=== PATIENT | female | born 1955 ===

== ENCOUNTER 2017-12-21 11:05 | Inpatient (IN) | payer OTHER ==
[~2017-12-21] VITALS: Ht 152.4 cm; Wt 90.7 kg
[2017-12-21] VITALS (13 sets, daily range): BP systolic 55–106; BP diastolic 25–64
[~2017-12-21 11:05] MED LIST: ATORVASTATIN CA40 MG ORAL; BACLOFEN10 MG ORAL; DICLOFENAC SODI75 MG ORAL; GABAPENTIN300 MG ORAL; LOSARTAN POTASS50 MG ORAL; NORCO1 E1 ORAL; PAROXETINE HCL20 MG PO; ceFAZolin 1gm in D5W 55ml IVP ONE; celeBREX 200mg Cap **SURGERY PATIENTS ONLY ORAL ONE; oxyCONTIN 20mg tab ORAL ONE
[2017-12-21] MEDS ORDERED: EPINEPHrine 1mg/1ml Amp ONE (14:17)
[2017-12-21] MEDS ORDERED: NeoSporin Gu Irrig 1ml Amp IRRIG ONE (14:18)
[2017-12-21] MEDS ORDERED: Bupivacaine 0.25% Inj 30ml INJ ONE (14:18)
[2017-12-21] MEDS ORDERED: Bacitracin 50000 Units Vial ONE (14:18)
[2017-12-21] MEDS ORDERED: oxyCONTIN 20mg tab ORAL ONE (16:05)
[2017-12-21] MEDS ORDERED: celeBREX 200mg Cap **SURGERY PATIENTS ONLY ORAL ONE (16:05)
[2017-12-21] MEDS ORDERED: LR 1000ml 1,000 ML IVLG SCH (16:38)
--- NOTE | 2017-12-21 16:38 | Anethesia Preoperative Eval ---
Anesthesia Pre-op PMH/ROS General Date of Evaluation: Dec 21, 2017 Time of Evaluation: 17:54 Anesthesiologist: Fawad ASA Score: ASA 3 Mallampati Score Class I : Soft palate, uvula, fauces, pillars visible Class II: Soft palate, uvula, fauces visible Class III: Soft palate, base of uvula visible Class IV: Only hard plate visible Mallampati Classification: Class II Surgeon: Gregory Diagnosis: L Shoulder Pain Surgical Procedure: L Shoulder Reverse Total Arthroplasty Anesthesia History: none Family History: no anesthesia problems Allergies: Coded Allergies: METHOCARBAMOL (Verified Allergy, Intermediate, hives, 12/20/17) Medications: see eMAR Past Medical History Cardiovascular: Reports: HTN, other - HL Other: obesity - BMI 44 PSxH Narrative: L Shoulder Total Arthroplasty Anesthesia Pre-op Phys. Exam Physician Exam Last Vital Signs Date Time Temp Pulse Resp B/P (MAP) Pulse Ox O2 Delivery O2 Flow Rate FiO2 12/21/17 12:18 Room Air 12/21/17 11:56 98.0 64 18 106/64 (78) 97 98.0 Constitutional: NAD Neurologic: CN 2-12 intact Cardiovascular: RRR Respiratory: CTA Gastrointestinal: S/NT/ND Airway Exam Mallampati Score: Class II MO: full ROM: limited Teeth: missing Dentures: upper Anesthesia Pre-op A/P Risk Assessment & Plan Assessment: ASA 3 Plan: GA, BIS, L Supraclavicular Block Status Change Before Surgery: No Pre-Antibiotics Dru Grams Ancef IV Given Within 1 Hr of Incision: Yes Time Given: 18:04 Rayshawn Celestin MD Dec 21, 2017 16:38
[2017-12-21] MEDS ORDERED: HYDROcodone/Acetamin 7.5/325 tab ORAL PRN (16:45)
[2017-12-21] MEDS ORDERED: DiphenhydrAMINE 50mg/ml Inj IVP PRN (16:45)
[2017-12-21] MEDS ORDERED: Atropine Inj 1mg/10ml Syr IV PRN (16:45)
[2017-12-21] MEDS ORDERED: LORazepam Inj 2mg/ml 1ml IV PRN (16:45)
[2017-12-21] MEDS ORDERED: Midazolam 2mg/2ml Inj IVP PRN (16:45)
[2017-12-21] MEDS ORDERED: Hydromorphone 0.5mg/0.5ml inj IVP PRN (16:45)
[2017-12-21] MEDS ORDERED: fentaNYL 100 mcg/2 mL IV PRN (16:45)
[2017-12-21] MEDS ORDERED: Metoclopramide 10mg/2ml Inj IVP PRN (16:45)
[2017-12-21] MEDS ORDERED: Norco 5mg/325mg tab ORAL PRN (16:45)
[2017-12-21] MEDS ORDERED: oxyCODONE HCL/Acetaminophen 5/325mg ORAL PRN (16:45)
[2017-12-21] MEDS ORDERED: Labetalol 5mg/ml 20ml vial IV PRN (16:45)
[2017-12-21] MEDS ORDERED: Ketorolac 30mg Inj IV PRN ×2 (16:45)
--- NOTE | 2017-12-21 17:11 | Immediate Post-Op Evaluation ---
Immediate Post-Op Evalulation Immediate Post-Op Evalulation Procedure: L Shoulder Reverse Revision Total Arthroplasty Date of Evaluation: Dec 21, 2017 Time of Evaluation: 20:40 IV Fluids: 1000 LR Blood Products: 0 Estimated Blood Loss: 100 Urinary Output: 0 Blood Pressure Systolic: 98 Blood Pressure Diastolic: 63 Pulse Rate: 89 Respiratory Rate: 16 O2 Sat by Pulse Oximetry: 96 Temperature (Fahrenheit): 99.1 Pain Score (1-10): 2 Nausea: No Vomiting: No Complications 0 Patient Status: awake, reacts, patent, extubated, none Hydration Status: adequate Dru grams Ancef IV Given Within 1 Hr of Incision: Yes Time Given: 18:04 Rayshawn Celestin MD Dec 21, 2017 17:11
--- NOTE | 2017-12-21 17:11 | 48 Hour Post Anesthesia Eval ---
Post Anesthesia Evaluation Procedure: L Shoulder Reverse Revision Total Arthroplasty Date of Evaluation: Dec 21, 2017 Time of Evaluation: 22:47 Blood Pressure Systolic: 98 0: 65 Pulse Rate: 78 Respiratory Rate: 18 Temperature (Fahrenheit): 98.4 O2 Sat by Pulse Oximetry: 99 Airway: patent Nausea: No Vomiting: No Pain Intensity: 2 Hydration Status: adequate Cardiopulmonary Status: Stable Mental Status/LOC: patient returned to baseline Follow-up Care/Observations: 0 Post-Anesthesia Complications: 0 Follow-up care needed: N/A Rayshawn Celestin MD Dec 21, 2017 17:11
[2017-12-21] MEDS ORDERED: Propofol 200mg/20ml IV ONE (17:17)
[2017-12-21] MEDS ORDERED: Sodium Chloride 10ml vial INJ ONE (17:17)
[2017-12-21] MEDS ORDERED: Lidocaine 1% MPF 10mg/ml 5ml ONE (17:17)
[2017-12-21] MEDS ORDERED: Dexamethasone 4mg/ml vial ONE (17:17)
[2017-12-21] MEDS ORDERED: Ropivacaine 5mg/ml Vial 30ml INJ ONE (17:19)
[2017-12-21] MEDS ORDERED: Alfentanil 2ml Inj ONE (17:22)
--- NOTE | 2017-12-21 17:32 | Pre-Procedure Note/Attestation ---
Pre-Procedure Note/Attestation Complete Prior to Procedure Planned Procedure: left Procedure Narrative: reverse shoulder replacement Indications for Procedure Pre-Operative Diagnosis: left shoulder arthritis Attestation I attest that I discussed the nature of the procedure; its benefits; risks and complications; and alternatives (and the risks and benefits of such alternatives ), prior to the procedure, with the patient (or the patient's legal aircraft sales representative). I attest that, if there was a reasonable possibility of needing a blood transfusion, the patient (or the patient's legal aircraft sales representative) was given the [facility] standardized written summary, pursuant to the Rafi Gurjit Blood Safety Act ([place] Health and Safety Code # 1645, as amended). I attest that I re-evaluated the patient just prior to the surgery and that there has been no change in the patient's H&P, except as documented below: Ezequiel Jenkins MD Dec 21, 2017 17:32
--- NOTE | 2017-12-21 17:33 | Operative Note - PDOC ---
Operative Note Operative Note Pre-op Diagnosis: left shoulder arthritis Procedure: see op report Post-op Diagnosis: same as pre-op plus Operative Findings: consistent w/pre-op dx studies Anesthesia: regional Specimen: none Complications: none Condition: stable Estimated Blood Loss: none Implant(s) used?: Yes Ezequiel Jenkins MD Dec 21, 2017 17:33
[2017-12-21] MEDS ORDERED: NS Irrig 1000ml IRRIG ONE (17:40)
[2017-12-21] MEDS ORDERED: D5 1/2NS 1,000 ML IV SCH (17:45)
[2017-12-21] MEDS ORDERED: LR 1000ml ONE (18:00)
[2017-12-21] MEDS ORDERED: NS Irrig 1000ml ONE (18:00)
[2017-12-21] MEDS ORDERED: Sterile Water Irrig 1000ml IRRIG ONE (18:00)
[2017-12-21] MEDS ORDERED: ePHEDrine 50mg/ml Inj ONE (18:41)
[2017-12-21] MEDS ORDERED: Phenylephrine 10mg/ml Vial ONE (18:41)
[2017-12-21] MEDS ORDERED: Glycopyrrolate 0.2mg/ml 1ml Vial ONE (18:42)
[2017-12-21] MEDS ORDERED: oxyCONTIN 20mg tab ORAL SCH (21:00)
--- NOTE | 2017-12-21 23:22 | General Progress Note ---
Assessment/Plan Status Narrative 62 year old female with history fof hypertenison pablook her bp meds last night and re took them this am her bp post op has remained low while she is alert , oriented adn talisha she was transfered to ICU for further care. Assessment/Plan plan start giving her bolus ivf and her blood pressure is getting better EKG is normal sins thyrhm no acute st t changed plan IVF bolus to be given .troponin q8 hrs times 3 a admit to icu uivf 150 cc for 8 hours and monitor blood pressure follow her in monitor bed sheis not tachycardic doub t post op VTE check cbc cmp troponin get ekg in am lowry to gravity adn get u a and urine culture icu monitoring discussed wtihnursing staff. Subjective Date patient seen: Dec 21, 2017 Time patient seen: 23:11 Constitutional: Reports: no symptoms HEENT: Reports: no symptoms Respiratory: Reports: no symptoms Gastrointestinal/Abdominal: Reports: no symptoms Allergies: Coded Allergies: METHOCARBAMOL (Verified Allergy, Intermediate, hives, 12/20/17) Subjective s/p left shoulder arthroplasty no chest pain no sob has low bp has history of hypertenion took her blood presure medicaiton losartan 100 mg last night and took another 100 mg this am she has been npo since last night adn has had only 100 cc intraoperative blood loss she is alert responsive on josh bed almeida and has no lowry placed ther isno post op lab drawn i was paged and got to hospital within 15 minutes her bp was low and send from pacu to ICU. Objective Last 24 Hour Vital Signs Date Time Temp Pulse Resp B/P (MAP) Pulse Ox O2 Delivery O2 Flow Rate FiO2 12/21/17 21:55 84 16 77/55 95 Nasal Cannula 3 12/21/17 21:40 83 19 85/51 95 Nasal Cannula 3 12/21/17 21:25 78 14 78/58 95 Nasal Cannula 3 12/21/17 21:10 81 16 86/57 95 Nasal Cannula 3 12/21/17 20:50 79 16 89/48 95 Nasal Cannula 3 12/21/17 20:39 84 16 84/51 95 Nasal Cannula 3 12/21/17 20:34 91 16 88/50 98 Nasal Cannula 3 12/21/17 20:34 209.1 78 18 99 12/21/17 20:33 210.4 89 16 96 12/21/17 20:29 99.1 91 16 98/63 99 Simple Mask 8 99.1 12/21/17 12:18 Room Air 12/21/17 11:56 98.0 64 18 106/64 (78) 97 98.0 Height (Feet): 5 Height (Inches): 0.00 Weight (Pounds): 200 General Appearance: WD/WN, other - alert aware oriented Neck: other - no j vd Cardiovascular: normal rate, regular rhythm, no JVD Respiratory/Chest: lungs clear Abdomen: soft Extremities: no calf tenderness - has ahd a block., other - left shoulder on shoulder brace adn unable to move Magnus Francisco MD Dec 21, 2017 23:22
[2017-12-21] MEDS: ceFAZolin sod 1 GM in D5W 55 ML IV SCH (23:30)
[2017-12-21 23:35] LABS: HEMATOCRIT 31.5 % (37.0-47.0); MEAN CORPUSCULAR VOLUME 96 FL (80-99); PLATELET COUNT 249 K/UL (150-450); RED BLOOD COUNT 3.28 M/UL (4.20-5.40); RED CELL DISTRIBUTION WIDTH 11.9 % (11.6-14.8); WHITE BLOOD COUNT 12.7 K/UL (4.8-10.8)
[2017-12-21 23:42] LABS: APPEARANCE,URINE CLEAR; BILIRUBIN, URINE NEGATIVE (NEGATIVE); COLOR,URINE PALE YELLOW; GLUCOSE, URINE (UA) NEGATIVE (NEGATIVE); KETONES,URINE NEGATIVE (NEGATIVE); LEUKOCYTE ESTERASE ,URINE NEGATIVE (NEGATIVE); NITRITE,URINE NEGATIVE (NEGATIVE); PH,URINE 6 (4.5-8.0); PROTEIN,URINE NEGATIVE (NEGATIVE); UROBILINOGEN,URINE NORMAL MG/DL (0.0-1.0)
[2017-12-21 23:46] LABS: ANION GAP 9 mmol/L (5-15); BLOOD UREA NITROGEN 17 mg/dL (7-18); CALCIUM 7.7 MG/DL (8.5-10.1); CARBON DIOXIDE 23 MMOL/L (21-32); CHLORIDE 111 MMOL/L (98-107); CREATININE 0.7 MG/DL (0.55-1.30); POTASSIUM 3.7 MMOL/L (3.5-5.1); SODIUM 143 MMOL/L (136-145)
[2017-12-21 23:50] LABS: ALANINE AMINOTRANSFERASE 34 U/L (12-78); ALBUMIN 2.9 G/DL (3.4-5.0); ALBUMIN/GLOBULIN RATIO 1.1 (1.0-2.7); ALKALINE PHOSPHATASE 50 U/L (46-116); ASPARTATE AMINO TRANSFERASE 18 U/L (15-37); BILIRUBIN,TOTAL 0.2 MG/DL (0.2-1.0)
--- NOTE | 2017-12-21 23:50 | Diagnostic Imaging Report ---
EXAM: XR Left Shoulder Complete, 2 or More Views CLINICAL HISTORY: POST-OP TECHNIQUE: Two or more views of the left shoulder. COMPARISON: No relevant prior studies available. FINDINGS: Left shoulder prosthesis appears well seated. No radiographic evidence of acute fracture or dislocation. The acromioclavicular joint is normal caliber. There is soft tissue prominence. IMPRESSION: No prior studies available for direct comparison. Well seated left shoulder prosthesis. No radiographic evidence of acute fracture or dislocation. Soft tissue prominence.
[2017-12-22] VITALS (45 sets, daily range): BP systolic 64–128; BP diastolic 32–76
[2017-12-22] MEDS ORDERED: Sodium Chloride 500ML 500 ML IV ONE
[2017-12-22] MEDS ORDERED: Midodrine 10mg tab ORAL SCH
--- NOTE | 2017-12-22 00:14 | General Progress Note ---
Assessment/Plan Assessment/Plan this is an unfortuante female who has basically doubled up her bp meds and went to surgery her bp was low to begin with preop and then has ahd surgery hjer bp is low depite it being low she is nto altered cbc reviewed, specific gravity of urine reviwed trioponin is negative nad her EKG is NSR monitor closely and will follow ivf bolus given will give 150 cc pwer hour. Subjective Date patient seen: Dec 22, 2017 Time patient seen: 00:10 Constitutional: Reports: no symptoms HEENT: Reports: no symptoms Cardiovascular: Reports: no symptoms Allergies: Coded Allergies: METHOCARBAMOL (Verified Allergy, Intermediate, hives, 12/20/17) Subjective has been given over 3 liters of iv fluid her urine out pur is good her bp is liow 80 with 55 diastolic making urine nad not altered adn converses Objective Last 24 Hour Vital Signs Date Time Temp Pulse Resp B/P (MAP) Pulse Ox O2 Delivery O2 Flow Rate FiO2 12/21/17 21:55 84 16 77/55 95 Nasal Cannula 3 12/21/17 21:40 83 19 85/51 95 Nasal Cannula 3 12/21/17 21:25 78 14 78/58 95 Nasal Cannula 3 12/21/17 21:10 81 16 86/57 95 Nasal Cannula 3 12/21/17 20:50 79 16 89/48 95 Nasal Cannula 3 12/21/17 20:39 84 16 84/51 95 Nasal Cannula 3 12/21/17 20:34 91 16 88/50 98 Nasal Cannula 3 12/21/17 20:34 209.1 78 18 99 12/21/17 20:33 210.4 89 16 96 12/21/17 20:29 99.1 91 16 98/63 99 Simple Mask 8 99.1 12/21/17 12:18 Room Air 12/21/17 11:56 98.0 64 18 106/64 (78) 97 98.0 Intake and Output 12/21/17 12/22/17 19:00 07:00 Intake Total 3000 ml Output Total 100 ml Balance 2900 ml Intake IV Total 3000 ml Output Estimated Blood Loss 100 ml # Voids 1 Laboratory Tests 12/21/17 23:15: Urine Color Pale yellow, Urine Appearance Clear, Urine pH 6, Urine Specific [place] 1.015, Urine Protein Negative, Urine Glucose (UA) Negative, Urine Ketones Negative, Urine Occult Blood Negative, Urine Nitrite Negative, Urine Bilirubin Negative, Urine Urobilinogen Normal, Urine Leukocyte Esterase Negative , Urine RBC 0-2, Urine WBC 0-2, Urine Squamous Epithelial Cells Few, Urine Bacteria Occasional 12/21/17 23:25: White Blood Count 12.7H, Red Blood Count 3.28L, Hemoglobin 11.0L, Hematocrit 31.5L, Mean Corpuscular Volume 96, Mean Corpuscular Hemoglobin 33.5H, Mean Corpuscular Hemoglobin Concent 35.0, Red Cell Distribution Width 11.9, Platelet Count 249, Mean Platelet Volume 6.5, Neutrophils (%) (Auto) , Lymphocytes (%) ( Auto) , Monocytes (%) (Auto) , Eosinophils (%) (Auto) , Basophils (%) (Auto) , Differential Total Cells Counted 100, Neutrophils % (Manual) 93H, Lymphocytes % (Manual) 6L, Monocytes % (Manual) 1, Eosinophils % (Manual) 0, Basophils % ( Manual) 0, Band Neutrophils 0, Platelet Estimate Adequate, Platelet Morphology Normal, Hypochromasia 1+, Anisocytosis 1+, Sodium Level 143, Potassium Level 3.7 , Chloride Level 111H, Carbon Dioxide Level 23, Anion Gap 9, Blood Urea Nitrogen 17, Creatinine 0.7, Estimat Glomerular Filtration Rate > 60, Glucose Level 133H, Calcium Level 7.7L, Total Bilirubin 0.2, Aspartate Amino Transf (AST /SGOT) 18, Alanine Aminotransferase (ALT/SGPT) 34, Alkaline Phosphatase 50, Troponin I 0.017, Total Protein 5.5L, Albumin 2.9L, Globulin 2.6, Albumin/ Globulin Ratio 1.1 Height (Feet): 5 Height (Inches): 0.00 Weight (Pounds): 200 Cardiovascular: normal rate, regular rhythm, no JVD Respiratory/Chest: lungs clear Magnus Francisco MD Dec 22, 2017 00:14
[2017-12-22] MEDS ORDERED: DOPamine 400mg/250ml 250 ML IV SCH ×2 (01:00→13:00)
--- NOTE | 2017-12-22 01:48 | Diagnostic Imaging Report ---
EXAM: XR Chest, 1 View CLINICAL HISTORY: SOB TECHNIQUE: Frontal view of the chest. COMPARISON: No relevant prior studies available. FINDINGS: Cardiac silhouette is within normal limits. Central vascular congestion. Low lung volumes. Left lung base infiltrate and small left effusion. Left shoulder prosthesis. IMPRESSION: Central vascular congestion. Left lung base infiltrate and small left effusion.
[2017-12-22] MEDS: Norco 5mg/325mg tab ORAL PRN ×3 (02:34→21:27)
--- NOTE | 2017-12-22 04:45 | Operative Note - Dictated ---
DATE OF OPERATION: 12/21/2017 PREOPERATIVE DIAGNOSIS: Left shoulder rotator cuff arthropathy secondary to fall. POSTOPERATIVE DIAGNOSIS: Left shoulder rotator cuff arthropathy secondary to fall. PROCEDURE: Left total reverse shoulder replacement, open biceps tenodesis. SURGEON: Ezequiel Jenkins M.D. ANESTHESIA: Interscalene with general. INDICATION FOR PROCEDURE: The patient is a pleasant female who was noted to have a significant fall. She subsequently had a rotator cuff tear. She had significant progression of rotator cuff arthropathy as a result of the fall and subsequent tear. She had significant neck pain, difficulty with activities of daily living, elected to undergo reverse shoulder replacement. Risks, limitations, expectations, and complications of procedure were discussed in detail. All questions addressed. DESCRIPTION OF PROCEDURE: After informed consent was obtained, the patient was brought to the operating room. The patient was placed under interscalene with general anesthesia. The patient was carefully positioned in beach chair position with care to pad all the extremities. Left shoulder was prepped and draped in a sterile manner. Time-out was performed. Standard deltopectoral incision to the shoulder was performed. The biceps tendon was identified. Open tenotomy subpectoral was performed using #2 FiberWire. There was complete deficiency of the supraspinatus. The subscapularis slightly was peeled to better gain access to the shoulder. Once that was done, anterior and posterior Bankart retractors were placed and capsulectomy was performed. Care was taken to protect the axillary nerve. A centering guide was then placed and a cannulated screw was placed. Sequential reaming over the guidewire was performed and a small base plate was selected with 4 cortical screws. Small glenosphere was then impacted into place. At this point, attention was turned towards the humeral preparation. Sequential broaching up to a size 9 was performed. A humeral adapter tray with +0 humeral liner was selected and placed. Shoulder was somewhat difficult to reduce, this was the smallest implant available. Once we were able to reduce this, it seemed like she had pretty good tension of the deltoid. No impingement with forward elevation to 160, abduction and external rotation. At this point, the trial components were removed and final implants were impacted into place. The wound was copiously irrigated. The deltoid fascia was approximated with 1 Vicryl suture. Skin was closed using 3-0 Monocryl sutures. Steri-Strips and a sterile dressing were applied. The patient was awoken and taken to recovery room with stable vital signs. ESTIMATED BLOOD LOSS: 100 mL. COMPLICATIONS: None. SPECIMENS: None. Gross specimens include bone fragments. IMPLANT: Include size 9 humeral head with +0 humeral adapter tray, 38+ humeral liner, a small 38 mm glenosphere. Ezequiel Jenkins M.D. DR: SAMIR JOB#: [id number] CC:
[2017-12-22] MEDS: Hydromorphone 0.5mg/0.5ml inj SUBQ PRN ×3 (05:33→19:50)
[2017-12-22 05:40] LABS: HEMATOCRIT 35.5 % (37.0-47.0); HEMOGLOBIN 12.2 G/DL (12.0-16.0); MEAN CORPUSCULAR VOLUME 93 FL (80-99); PLATELET COUNT 282 K/UL (150-450); RED CELL DISTRIBUTION WIDTH 11.7 % (11.6-14.8); WHITE BLOOD COUNT 11.3 K/UL (4.8-10.8)
[2017-12-22] MEDS: ceFAZolin sod 1 GM in D5W 55 ML IV SCH ×2 (06:01→16:27)
[2017-12-22 06:58] LABS: ANION GAP 13 mmol/L (5-15); BLOOD UREA NITROGEN 15 mg/dL (7-18); CALCIUM 8.3 MG/DL (8.5-10.1); CARBON DIOXIDE 21 MMOL/L (21-32); CHLORIDE 109 MMOL/L (98-107); CREATININE 0.6 MG/DL (0.55-1.30); POTASSIUM 3.7 MMOL/L (3.5-5.1); SODIUM 143 MMOL/L (136-145)
[2017-12-22] MEDS ORDERED: celeBREX 200mg Cap **SURGERY PATIENTS ONLY ORAL SCH (09:00)
--- NOTE | 2017-12-22 11:33 | General Progress Note ---
Assessment/Plan Assessment/Plan this is an unfortuante female who has basically doubled up her bp meds and went to surgery her bp was low to begin with preop and then has had surgery her bp is low despite it being low she is has not been altered she is making good amount of urine out put cbc reviewed, specific gravity of urine reviwed trioponin is negative nad her EKG is NSR monitor closely and will follow ivf bolus given will give 150 cc pwer hour. troponin x2 negative chest xray has a basalr infitrate adn her sat has dropped slightly will monitor will follow flo follow troponin get a v q scan to make sure no acute pe venous douplex no DVT will do 2 blood culture on her will start her on levofloxin 500 mg iv daily will place her on probiotics. Subjective Date patient seen: Dec 22, 2017 Time patient seen: 11:24 Constitutional: Reports: no symptoms HEENT: Reports: no symptoms Cardiovascular: Reports: no symptoms Respiratory: Reports: shortness of breath Gastrointestinal/Abdominal: Reports: other Genitourinary: Reports: other Endocrine: Reports: other Allergies: Coded Allergies: METHOCARBAMOL (Verified Allergy, Intermediate, hives, 12/20/17) Subjective has had iv fluid was placed on dopamine and got her bp better given ivf and was placed on low dose dopamine and bp was around i100 and dced no [place] t xray basalar infiltrat Objective Last 24 Hour Vital Signs Date Time Temp Pulse Resp B/P (MAP) Pulse Ox O2 Delivery O2 Flow Rate FiO2 12/22/17 09:00 93 13 105/76 (86) 94 12/22/17 08:00 93 24 105/76 (86) 94 12/22/17 08:00 Nasal Cannula 4.0 12/22/17 08:00 74 12/22/17 07:00 73 13 116/56 (76) 94 12/22/17 06:15 77 13 104/52 (69) 90 12/22/17 06:00 79 12 111/50 (70) 91 12/22/17 05:45 80 12 106/53 (70) 91 12/22/17 05:30 87 19 98/46 (63) 91 12/22/17 05:15 90 19 118/54 (75) 92 12/22/17 05:00 84 15 118/56 (76) 92 12/22/17 04:45 86 15 119/50 (73) 92 12/22/17 04:30 86 16 109/50 (69) 92 12/22/17 04:15 86 15 112/49 (70) 92 12/22/17 04:00 86 12/22/17 04:00 97.9 87 14 114/57 (76) 90 97.9 12/22/17 04:00 Nasal Cannula 4.0 12/22/17 03:45 85 14 106/57 (73) 90 12/22/17 03:30 82 13 106/57 (73) 91 12/22/17 03:15 83 13 111/53 (72) 90 12/22/17 03:00 83 13 108/48 (68) 92 12/22/17 02:45 83 13 101/50 (67) 92 12/22/17 02:30 82 13 109/40 (63) 91 12/22/17 02:15 84 13 107/52 (70) 92 12/22/17 02:00 109/40 12/22/17 02:00 83 13 103/52 (69) 93 12/22/17 01:45 85 13 98/47 (64) 91 12/22/17 01:30 90 13 106/46 (66) 92 12/22/17 01:25 Nasal Cannula 2.0 12/22/17 01:15 91 16 104/53 (70) 90 12/22/17 01:00 86 19 108/53 (71) 93 12/22/17 00:56 84/50 12/22/17 00:45 83 16 81/54 (63) 94 12/22/17 00:30 79 16 84/50 (61) 93 12/22/17 00:15 86 17 77/52 (60) 94 12/22/17 00:00 84 17 64/41 (49) 95 12/22/17 00:00 Nasal Cannula 4.0 12/22/17 00:00 84 12/21/17 23:45 83 17 55/25 (35) 95 12/21/17 23:30 79 17 77/56 (63) 94 12/21/17 23:15 80 18 78/49 (59) 94 12/21/17 23:00 98.1 81 19 80/55 (63) 94 98.1 12/21/17 21:55 84 16 77/55 95 Nasal Cannula 3 12/21/17 21:40 83 19 85/51 95 Nasal Cannula 3 12/21/17 21:25 78 14 78/58 95 Nasal Cannula 3 12/21/17 21:10 81 16 86/57 95 Nasal Cannula 3 12/21/17 20:50 79 16 89/48 95 Nasal Cannula 3 12/21/17 20:39 84 16 84/51 95 Nasal Cannula 3 12/21/17 20:34 91 16 88/50 98 Nasal Cannula 3 12/21/17 20:34 209.1 78 18 99 12/21/17 20:33 210.4 89 16 96 12/21/17 20:29 99.1 91 16 98/63 99 Simple Mask 8 99.1 12/21/17 12:18 Room Air 12/21/17 11:56 98.0 64 18 106/64 (78) 97 98.0 Intake and Output 12/21/17 12/22/17 19:00 07:00 Intake Total 4691.437 ml Output Total 1475 ml Balance 3216.437 ml Intake Oral 720 ml IV Total 3971.437 ml Output Urine Total 1375 ml Estimated Blood Loss 100 ml # Voids 1 Laboratory Tests 12/21/17 23:15: Urine Color Pale yellow, Urine Appearance Clear, Urine pH 6, Urine Specific [place] 1.015, Urine Protein Negative, Urine Glucose (UA) Negative, Urine Ketones Negative, Urine Occult Blood Negative, Urine Nitrite Negative, Urine Bilirubin Negative, Urine Urobilinogen Normal, Urine Leukocyte Esterase Negative , Urine RBC 0-2, Urine WBC 0-2, Urine Squamous Epithelial Cells Few, Urine Bacteria Occasional 12/21/17 23:25: White Blood Count 12.7H, Red Blood Count 3.28L, Hemoglobin 11.0L, Hematocrit 31.5L, Mean Corpuscular Volume 96, Mean Corpuscular Hemoglobin 33.5H, Mean Corpuscular Hemoglobin Concent 35.0, Red Cell Distribution Width 11.9, Platelet Count 249, Mean Platelet Volume 6.5, Neutrophils (%) (Auto) , Lymphocytes (%) ( Auto) , Monocytes (%) (Auto) , Eosinophils (%) (Auto) , Basophils (%) (Auto) , Differential Total Cells Counted 100, Neutrophils % (Manual) 93H, Lymphocytes % (Manual) 6L, Monocytes % (Manual) 1, Eosinophils % (Manual) 0, Basophils % ( Manual) 0, Band Neutrophils 0, Platelet Estimate Adequate, Platelet Morphology Normal, Hypochromasia 1+, Anisocytosis 1+, Sodium Level 143, Potassium Level 3.7 , Chloride Level 111H, Carbon Dioxide Level 23, Anion Gap 9, Blood Urea Nitrogen 17, Creatinine 0.7, Estimat Glomerular Filtration Rate > 60, Glucose Level 133H, Calcium Level 7.7L, Total Bilirubin 0.2, Aspartate Amino Transf (AST /SGOT) 18, Alanine Aminotransferase (ALT/SGPT) 34, Alkaline Phosphatase 50, Troponin I 0.017, Total Protein 5.5L, Albumin 2.9L, Globulin 2.6, Albumin/ Globulin Ratio 1.1 12/22/17 05:25: White Blood Count 11.3H, Red Blood Count 3.80L, Hemoglobin 12.2, Hematocrit 35.5L, Mean Corpuscular Volume 93, Mean Corpuscular Hemoglobin 32.0H, Mean Corpuscular Hemoglobin Concent 34.3, Red Cell Distribution Width 11.7, Platelet Count 282, Mean Platelet Volume 6.4L, Neutrophils (%) (Auto) , Lymphocytes (%) ( Auto) , Monocytes (%) (Auto) , Eosinophils (%) (Auto) , Basophils (%) (Auto) , Differential Total Cells Counted 100, Neutrophils % (Manual) 91H, Lymphocytes % (Manual) 8L, Monocytes % (Manual) 1, Eosinophils % (Manual) 0, Basophils % ( Manual) 0, Band Neutrophils 0, Platelet Estimate Adequate, Platelet Morphology Normal, Sodium Level 143, Potassium Level 3.7, Chloride Level 109H, Carbon Dioxide Level 21, Anion Gap 13, Blood Urea Nitrogen 15, Creatinine 0.6, Estimat Glomerular Filtration Rate > 60, Glucose Level 183H, Calcium Level 8.3L, Troponin I 0.000 Height (Feet): 5 Height (Inches): 0.00 Weight (Pounds): 200 General Appearance: WD/WN Cardiovascular: no JVD Respiratory/Chest: other - prolonged exp phase end exp wheezing left base decrease baasalr brath sound Abdomen: non tender, soft Extremities: other - no edema Magnus Francisco MD Dec 22, 2017 11:32
[2017-12-22] MEDS: Albuterol ud Inhalation HHN SCH ×2 (13:00→19:07)
[2017-12-22] MEDS: Ipratropium 0.02% Inh Soln 2.5ml UD HHN SCH ×2 (13:00→19:07)
[2017-12-22 13:54] LABS: APPEARANCE,URINE CLEAR; BILIRUBIN, URINE NEGATIVE (NEGATIVE); COLOR,URINE PALE YELLOW; GLUCOSE, URINE (UA) NEGATIVE (NEGATIVE); KETONES,URINE NEGATIVE (NEGATIVE); LEUKOCYTE ESTERASE ,URINE NEGATIVE (NEGATIVE); NITRITE,URINE NEGATIVE (NEGATIVE); PH,URINE 6 (4.5-8.0); PROTEIN,URINE NEGATIVE (NEGATIVE); UROBILINOGEN,URINE NORMAL MG/DL (0.0-1.0)
[2017-12-22] MEDS ORDERED: NS 500ML ONE (15:45)
[2017-12-22] MEDS ORDERED: Tubing IV Secondary IV ONE (15:54)
[2017-12-22] MEDS: ALPRAZolam 0.25mg tab ORAL PRN (18:50)
[2017-12-23] VITALS (20 sets, daily range): BP systolic 90–157; BP diastolic 52–93
[2017-12-23] MEDS: Ipratropium 0.02% Inh Soln 2.5ml UD HHN SCH ×4 (01:00→20:14)
[2017-12-23] MEDS: Norco 5mg/325mg tab ORAL PRN (02:10)
[2017-12-23] MEDS: Hydromorphone 0.5mg/0.5ml inj SUBQ PRN ×4 (02:18→20:46)
[2017-12-23 05:54] LABS: ANION GAP 4 mmol/L (5-15); BLOOD UREA NITROGEN 10 mg/dL (7-18); CALCIUM 8.6 MG/DL (8.5-10.1); CARBON DIOXIDE 28 MMOL/L (21-32); CHLORIDE 111 MMOL/L (98-107); CREATININE 0.6 MG/DL (0.55-1.30); POTASSIUM 3.7 MMOL/L (3.5-5.1); SODIUM 143 MMOL/L (136-145)
[2017-12-23 05:59] LABS: BASOPHILS % (AUTO) 0.3 % (0.0-2.0); HEMATOCRIT 31.2 % (37.0-47.0); HEMOGLOBIN 10.9 G/DL (12.0-16.0); LYMPHOCYTES % (AUTO) 27.1 % (20.0-45.0); MEAN CORPUSCULAR VOLUME 94 FL (80-99); MONOCYTES % (AUTO) 5.6 % (1.0-10.0); PLATELET COUNT 244 K/UL (150-450); RED BLOOD COUNT 3.32 M/UL (4.20-5.40); RED CELL DISTRIBUTION WIDTH 11.3 % (11.6-14.8); WHITE BLOOD COUNT 9.4 K/UL (4.8-10.8)
[2017-12-23] MEDS: Albuterol ud Inhalation HHN SCH ×3 (07:00→20:14)
[2017-12-23] MEDS: ALPRAZolam 0.25mg tab ORAL PRN (13:22)
--- NOTE | 2017-12-23 13:30 | Cardiology Report ---
APPROVED REPORT EKG Measurement Heart [id number] Normal sinus rhythm Normal ECG
--- NOTE | 2017-12-23 15:43 | General Progress Note ---
Assessment/Plan Assessment/Plan this is an unfortuante female who has basically doubled up her bp meds and went to surgery her bp was low to begin with preop and then has had surgery her bp is low -despite it being low it was noted that her left arm has much higher bp than right arm she had lots of iv fluid given now better seld diuresing trioponin is negative nad her EKG is NSR monitor closely and will follow Chest xray has a basalar infitrate and slihgt effusion on iv antibiotic venous douplex no DVT has had 2 blood culture on her was started on levofloxin 500 mg iv daily will place her on probiotics. nebulizer tratement and follow doing better was send to monitor bed and now can go to floor. Subjective Date patient seen: Dec 23, 2017 Time patient seen: 15:38 Allergies: Coded Allergies: METHOCARBAMOL (Verified Allergy, Intermediate, hives, 12/20/17) Subjective she has made a lort of urine doing well still has a cough was started on antibiotic no chest pain no sob wound dressing is dry Objective Last 24 Hour Vital Signs Date Time Temp Pulse Resp B/P (MAP) Pulse Ox O2 Delivery O2 Flow Rate FiO2 12/23/17 13:40 69 20 99 Nasal Cannula 3.0 32 12/23/17 13:30 70 18 99 Nasal Cannula 3.0 32 12/23/17 13:00 69 16 126/85 (99) 94 12/23/17 12:00 75 12/23/17 12:00 Nasal Cannula 4.0 12/23/17 12:00 98.7 71 16 157/71 (99) 94 98.7 12/23/17 11:00 77 17 134/69 (90) 94 12/23/17 10:00 79 18 135/93 (107) 94 12/23/17 09:00 71 14 147/64 (91) 94 12/23/17 08:00 Nasal Cannula 4.0 12/23/17 08:00 98.6 77 16 157/71 (99) 94 98.6 12/23/17 08:00 77 12/23/17 07:50 Nasal Cannula 12/23/17 07:50 Nasal Cannula 3.0 32 12/23/17 07:50 Nasal Cannula 12/23/17 07:50 96 Nasal Cannula 3.0 32 12/23/17 07:00 72 13 150/67 (94) 97 12/23/17 06:00 71 13 145/70 (95) 97 12/23/17 05:00 77 13 139/65 (89) 96 12/23/17 04:00 74 12/23/17 04:00 Nasal Cannula 4.0 12/23/17 04:00 98.5 70 13 138/56 (83) 96 98.5 12/23/17 03:00 71 13 129/62 (84) 96 12/23/17 02:00 70 18 113/52 (72) 98 12/23/17 01:04 Nasal Cannula 3.0 32 12/23/17 01:04 Nasal Cannula 3.0 32 12/23/17 01:00 70 14 105/83 (90) 96 12/23/17 00:00 Nasal Cannula 4.0 12/23/17 00:00 98.5 70 14 120/52 (74) 96 98.5 12/22/17 23:00 70 20 119/48 (71) 98 12/22/17 22:00 71 20 124/52 (76) 97 12/22/17 21:00 71 20 120/50 (73) 97 12/22/17 20:00 85 12/22/17 20:00 Nasal Cannula 4.0 12/22/17 20:00 98.3 71 20 112/49 (70) 95 98.3 12/22/17 19:17 73 15 99 Nasal Cannula 3.0 32 12/22/17 19:07 68 15 99 Nasal Cannula 3.0 32 12/22/17 19:07 Nasal Cannula 3.0 32 12/22/17 19:07 99 Nasal Cannula 3.0 32 12/22/17 19:00 71 20 125/52 (76) 94 12/22/17 18:00 66 20 122/51 (74) 97 12/22/17 17:00 86 16 118/51 (73) 96 12/22/17 16:28 97.9 71 16 123/64 (83) 96 97.9 12/22/17 16:00 73 12/22/17 16:00 71 16 123/64 (83) 96 12/22/17 16:00 Nasal Cannula 4.0 Intake and Output 12/22/17 12/23/17 19:00 07:00 Intake Total 320 ml 120 ml Output Total 2850 ml 1500 ml Balance -2530 ml -1380 ml Intake Oral 320 ml 120 ml Output Urine Total 2850 ml 1500 ml Laboratory Tests 12/22/17 17:30: Troponin I 0.007 12/23/17 04:20: White Blood Count 9.4, Red Blood Count 3.32L, Hemoglobin 10.9L, Hematocrit 31.2L , Mean Corpuscular Volume 94, Mean Corpuscular Hemoglobin 33.0H, Mean Corpuscular Hemoglobin Concent 35.1, Red Cell Distribution Width 11.3L, Platelet Count 244, Mean Platelet Volume 6.9, Neutrophils (%) (Auto) 67.0, Lymphocytes (%) (Auto) 27.1, Monocytes (%) (Auto) 5.6, Eosinophils (%) (Auto) 0.0, Basophils (%) (Auto) 0.3, Sodium Level 143, Potassium Level 3.7, Chloride Level 111H, Carbon Dioxide Level 28, Anion Gap 4L, Blood Urea Nitrogen 10, Creatinine 0.6, Estimat Glomerular Filtration Rate > 60, Glucose Level 111H, Calcium Level 8.6 Height (Feet): 5 Height (Inches): 0.00 Weight (Pounds): 200 General Appearance: WD/WN Neck: non-tender Cardiovascular: normal rate, regular rhythm Respiratory/Chest: other - left base end exp wheeaing , rhonchi Abdomen: non tender, soft Genitourinary/Rectal: other Extremities: other - haqs scd Magnus Francisco MD Dec 23, 2017 15:43
[2017-12-23] MEDS ORDERED: ALPRAZolam 0.25mg tab ORAL PRN (18:00)
[2017-12-24] VITALS: BP 142/70
[2017-12-24] MEDS: Ipratropium 0.02% Inh Soln 2.5ml UD HHN SCH ×3 (00:36→13:00)
[2017-12-24] MEDS: Norco 5mg/325mg tab ORAL PRN ×2 (01:12→12:30)
[2017-12-24 04:00] VITALS: BP 106/56
[2017-12-24] MEDS: Hydromorphone 0.5mg/0.5ml inj SUBQ PRN ×2 (05:39→10:02)
[2017-12-24 08:00] VITALS: BP 146/72
[2017-12-24] MEDS: Albuterol ud Inhalation HHN SCH ×2 (08:19→13:00)
[2017-12-24 08:35] LABS: BASOPHILS % (AUTO) 0.8 % (0.0-2.0); HEMATOCRIT 33.4 % (37.0-47.0); HEMOGLOBIN 11.8 G/DL (12.0-16.0); LYMPHOCYTES % (AUTO) 27.8 % (20.0-45.0); MEAN CORPUSCULAR VOLUME 93 FL (80-99); MONOCYTES % (AUTO) 4.9 % (1.0-10.0); NEUTROPHILS % (AUTO) 65.4 % (45.0-75.0); PLATELET COUNT 252 K/UL (150-450); RED BLOOD COUNT 3.59 M/UL (4.20-5.40); RED CELL DISTRIBUTION WIDTH 11.3 % (11.6-14.8); WHITE BLOOD COUNT 7.2 K/UL (4.8-10.8)
[2017-12-24] MEDS ORDERED: celeBREX 200mg Cap **SURGERY PATIENTS ONLY ORAL SCH (09:00)
[2017-12-24 09:13] LABS: ANION GAP 10 mmol/L (5-15); BLOOD UREA NITROGEN 8 mg/dL (7-18); CARBON DIOXIDE 26 MMOL/L (21-32); CHLORIDE 104 MMOL/L (98-107); CREATININE 0.6 MG/DL (0.55-1.30); POTASSIUM 3.2 MMOL/L (3.5-5.1); SODIUM 140 MMOL/L (136-145)
[2017-12-24 12:00] VITALS: BP 147/68
--- NOTE | 2017-12-24 12:00 | Progress Note ---
DATE: 12/22/2017 SUBJECTIVE: The patient is postop day #1 status post reverse shoulder replacement. The patient is doing relatively well. She was somewhat hypotensive after surgery. Therefore, she was closely monitored. She was in the ICU. She had low blood pressure. She was started on low-dose dopamine. She had no other issues overnight. OBJECTIVE: GENERAL: The patient is alert and oriented. She at this time is comfortably resting in exam bed. Left shoulder examination shows incision to be dry and intact. The nerve block is still somewhat in place. Radial pulse was +2. IMAGING STUDIES: Show implant in good position. ASSESSMENT: Status post reverse shoulder replacement. DISCUSSION: At this point, given symptomatology, what I am going to do is continue to kind of monitor blood pressure. We gave her some fluids and she is making adequate urine, but her blood pressure is not responding. It does not look it is from the embolus tachypneic or tachycardia. At this point, we will kind of continue to monitor while she is on the low-dose dopamine as well as fluids and see if her blood pressure responds. I will touch base again later with for further updates and clarity on potential and issues. Ezequiel Jenkins M.D. DR: Sandhya JOB#: [id number] CC:
--- NOTE | 2017-12-24 12:15 | Progress Note ---
DATE: 12/22/2017 I saw the patient at 11 o'clock last night. I saw the patient earlier today. This is my third visit to see the patient admitted in 24 hours. The patient is status post left shoulder reverse arthroplasty. Postoperatively, the patient was noted to be hypotensive . Although she was hypotensive, she was making urine. She was alert and oriented. Multiple tests were done. The patient had troponin done and they were all negative. The patient had a venous Doppler done and they were all negative. The patient had lab done to see if the patient has had excessive blood loss and hematocrit on is 35.5. Nonetheless, the patient had a chest x-ray that showed left lower lobe effusion and atelectasis with infiltrate. The patient was also noted to have slightly elevated BNP. The patient has been getting a lot of IV fluid. We will put on oxygen for now. Impression at this time is the blood pressure in the left arm that was operated is within normal range and blood pressure in the right arm is not. The patient has subclavian stenosis that is affecting the blood pressures. We will be using the left upper extremity blood pressure. We will monitor the patient closely. Her I's and O's will be monitored closely. She is on antibiotic for possible pneumonitis. She will have a PT/OT evaluation in the floor. She has some wheezing, so likely she will be placed on albuterol and Atrovent. Physical therapy per recommendation of Dr. Jenkins. IMPRESSION: 1. Status post left shoulder arthroplasty. 2. Postoperative low blood pressure, likely the fact that asymmetrical blood pressure, we will use the left arm as ? subclavian stenosis. PLAN: Transfer the patient from the intensive care unit to monitored bed. Monitor I's and O's. Case was discussed with the patient and the nursing staff. Magnus Francisco M.D. DR: ANAYA JOB#: [id number] CC: JESSICA
[2017-12-24] MEDS ORDERED: TRAMADOL HCL50 MG ORAL (12:55)
--- NOTE | 2017-12-24 14:50 | Diagnostic Imaging Report ---
Indications: Cough and shortness of breath Technique: IV administration 5.5 mCi 99m technetium macroaggregated albumin. Images obtained over the lungs in multiple projections. Previous, patient inhaled 40 mCi aerosolized 99M technetium DTPA. Images obtained over the lungs in multiple projections Comparison: Reference made to chest radiograph dated 12/21/2017 Findings: Aerosol images are unremarkable. Perfusion images demonstrates slight heterogeneity, but no focal segmental or subsegmental perfusion defects and no evidence of ventilation/perfusion mismatch demonstrated. Impression: Findings are deemed low probability for pulmonary embolus
[2017-12-24] MEDS ORDERED: NS 275ml ONE (15:14)
[2017-12-24] MEDS ORDERED: Tubing IV Secondary IV ONE (15:14)
--- NOTE | 2017-12-25 05:30 | Discharge Summary ---
DATE OF ADMISSION: 12/22/2017 DATE OF DISCHARGE: 12/24/2017 HOSPITAL COURSE: This is an unfortunate female who was to undergo reverse left total shoulder arthroplasty. The patient underwent surgery without any difficulty. Postoperatively, the patient was taken to the PACU and was noted to be hypotensive and was sent to the intensive care unit. The patient was hypotensive, however, blood pressure was taken from the right upper extremity and was started on low-dose dopamine. After that, she was taken off the dopamine. Blood pressure remained around 90s. She is making good amount of urine. I was not sure exactly why the cause of the blood pressure drop was, although tried and requested if we could do the vitals on the left arm. Vitals on the left arm were 129/50s and consistent with her status. The patient continued to have possible the patient had subclavian stenosis on the left arm, blood pressure consistent with her clinical picture. Blood pressure was taken from the left arm. The patient had chest x-ray which showed small left pleural effusion and pneumonia. The patient had venous Doppler, no DVT. The patient had V/Q scan, no PE. The patient will be discharged to home with Levaquin 500 mg daily. The patient was also noted to have potassium of 3.2, 40 mEq of potassium will be given today. She will be discharged home and we will follow the patient closely. Levaquin 500 mg daily for 7 more days will be given to the patient. The patient has pain management also to control her pain. Orthopedics will follow. Magnus Francisco M.D. DR: BENSON JOB#: [id number] CC: JESSICA
--- NOTE | 2017-12-26 11:12 | Discharge Summary ---
Discharge Summary Discharge Summary _ DISCHARGE DIAGNOSES -Left shoulder rotator cuff arthropathy secondary to fall. -s/p Left total reverse shoulder replacement, open biceps tenodesis -postop hypotension ( resolved) . Gunjan Moctezuma NP Dec 26, 2017 11:12
--- NOTE | 2017-12-28 16:50 | Cardiology Report ---
APPROVED REPORT EKG Measurement Heart [id number] ND [id number] Normal sinus rhythm Normal ECG
== END 2017-12-24 15:15 | disposition home or self-care (01) | DRG 483 ==
LOC: SUR 11:05 → ICU 12-22 02:09 → 4E 12-23 18:00
PROC: 0RRK00Z Replacement of Left Shoulder Joint with Reverse Ball and Socket Synthetic Substitute, Open Approach (ICD-10-PCS; principal; 2017-12-22)
DX: S46.012A Strain of muscle(s) and tendon(s) of the rotator cuff of left shoulder, initial encounter (principal); W19.XXXA Unspecified fall, initial encounter; M12.512 Traumatic arthropathy, left shoulder; Z88.8 Allergy status to other drugs, medicaments and biological substances; I70.8 Atherosclerosis of other arteries; I95.81 Postprocedural hypotension; I10 Essential (primary) hypertension; E78.5 Hyperlipidemia, unspecified; F17.200 Nicotine dependence, unspecified, uncomplicated; M19.90 Unspecified osteoarthritis, unspecified site
CPT/HCPCS: 36415; 71045; 78579; 78580; 80048; 80053; 81001; 81003; 83880; 83935; 84300; 84484; 85007; 85025; 87040; 87081; 93005; 93930; 93970; 94003; 94150; 94640; 94664; 94760; A9503; J2370; J2405; J3490; J8499